=== PATIENT | male | born 1980 | race Caucasian/White ===

== ENCOUNTER 2020-06-08 16:08 | Emergency (ER) | payer OTHER ==
[~2020-06-08] VITALS: Ht 185.4 cm; Wt 73.5 kg
--- NOTE | 2020-06-08 16:50 | NUR ---
c/o dry cough x 1 week.
--- NOTE | 2020-06-08 16:58 | NUR ---
covid swab done
[2020-06-08 16:59] VITALS: BP 124/76
[2020-06-08 17:27] VITALS: BP 124/76
--- NOTE | 2020-06-08 17:27 | NUR ---
Patient discharged with v/s stable. Written and verbal after care instructions given and explained. Patient verbalized understanding. Ambulatory with steady gait. All questions addressed prior to discharge. Advised to follow up with PMD.
== END 2020-06-08 17:27 | disposition home or self-care (01) ==
LOC: MED 16:08
DX: R05 Cough (principal); Z20.828 Contact with and (suspected) exposure to other viral communicable diseases
CPT/HCPCS: 99283; U0003